=== PATIENT | female | born 1945 | race Caucasian/White ===

== ENCOUNTER 2018-01-30 16:27 | Outpatient (CLI) | payer OTHER ==
[~2018-01-30] VITALS: Ht 154.9 cm; Wt 58.1 kg
== END 2018-01-30 16:40 | disposition home or self-care (01) ==
LOC: OFIC 805 16:27
DX: H92.01 Otalgia, right ear (principal); J32.8 Other chronic sinusitis; R04.0 Epistaxis; J34.89 Other specified disorders of nose and nasal sinuses; H61.21 Impacted cerumen, right ear

== ENCOUNTER 2018-04-21 11:09 | Outpatient (CLI) | payer OTHER ==
[~2018-04-21] VITALS: Ht 152.4 cm; Wt 58.1 kg
[2018-04-27] MEDS ORDERED: ZOLOFT PO (14:56)
[2018-04-27] MEDS ORDERED: XARELTO10 MG PO (14:56)
== END 2018-04-21 15:12 | disposition home or self-care (01) ==
LOC: OFIC 805 11:09
DX: H92.01 Otalgia, right ear (principal); H90.11 Conductive hearing loss, unilateral, right ear, with unrestricted hearing on the contralateral side; H91.8X1 Other specified hearing loss, right ear

== ENCOUNTER → 2018-05-01 | Day surgery (SDC) | payer OTHER ==
[~2018-05-01] MED LIST: XARELTO10 MG PO; ZOLOFT PO
== END | disposition home or self-care (01) ==
LOC: ADM 04-27 14:15 → CIR.AMB 05:50
DX: H65.491 Other chronic nonsuppurative otitis media, right ear (principal); H90.11 Conductive hearing loss, unilateral, right ear, with unrestricted hearing on the contralateral side

== ENCOUNTER 2018-05-15 10:49 | Outpatient (CLI) | payer OTHER ==
[~2018-05-15] VITALS: Ht 152.4 cm; Wt 58.1 kg
== END 2018-05-15 11:10 | disposition home or self-care (01) ==
LOC: OFIC 805 10:49
DX: H90.0 Conductive hearing loss, bilateral (principal); H92.01 Otalgia, right ear

== ENCOUNTER → 2020-05-26 | Outpatient (CLI) | payer OTHER | END | disposition home or self-care (01) | LOC: RAD 09:43 | PROVIDERS: ATTEND Orthopaedic Surgery | DX: S52.532A Colles' fracture of left radius, initial encounter for closed fracture (principal) ==

== ENCOUNTER → 2020-07-01 | Outpatient (CLI) | payer OTHER | END | disposition home or self-care (01) | LOC: RAD 09:00 | PROVIDERS: ATTEND Orthopaedic Surgery | DX: S52.531A Colles' fracture of right radius, initial encounter for closed fracture (principal); S72.142D Displaced intertrochanteric fracture of left femur, subsequent encounter for closed fracture with routine healing; M85.88 Other specified disorders of bone density and structure, other site ==

== ENCOUNTER 2020-09-17 08:59 | Outpatient (CLI) | payer OTHER | END 2020-09-17 10:56 | disposition home or self-care (01) | LOC: OFIC 805 08:59 | PROVIDERS: ATTEND Otolaryngology Otology & Neurotology | DX: T16.1XXA Foreign body in right ear, initial encounter (principal); H90.11 Conductive hearing loss, unilateral, right ear, with unrestricted hearing on the contralateral side; H66.91 Otitis media, unspecified, right ear ==

== ENCOUNTER 2021-09-07 07:04 | Day surgery (SDC) | payer OTHER ==
[~2021-09-07 07:04] MED LIST changes: +SERTRALINE20 MG/1 ML; +SIMVASTATIN5 MG PO
== END 2021-09-07 16:24 | disposition home or self-care (01) ==
LOC: CIR.AMB 07:04
PROVIDERS: ATTEND Otolaryngology
DX: H66.91 Otitis media, unspecified, right ear (principal); E03.9 Hypothyroidism, unspecified; E16.2 Hypoglycemia, unspecified; J32.9 Chronic sinusitis, unspecified; H73.891 Other specified disorders of tympanic membrane, right ear

== ENCOUNTER 2022-12-02 11:02 | Outpatient (CLI) | payer OTHER | END 2022-12-02 14:06 | disposition home or self-care (01) | LOC: RAD 11:02 | PROVIDERS: ATTEND Physical Medicine & Rehabilitation | DX: M25.552 Pain in left hip (principal) ==